=== PATIENT | male | born 1995 | race Caucasian/White ===

== ENCOUNTER 2019-05-05 21:35 | Emergency (ER) | payer OTHER ==
[2019-05-05 21:47] VITALS: BP 132/72; PULSE 83; RESP 18; TEMP 98.1
[2019-05-05] MEDS ORDERED: PENICILLIN V POTASSIUM 250 MG TAB PO STA (22:08)
[2019-05-05] MEDS ORDERED: PENICILLIN VK 500MG STARTER 4 TAB BTL PO STA (22:08)
[2019-05-05] MEDS ORDERED: KETOROLAC 60 MG/2 ML VIAL IM STA (22:08)
--- NOTE | 2019-05-05 22:18 | ED ---
General Adult HPI - General Chief complaint: Dental/Oral Stated complaint: Dental pain Time Seen by Provider: 05/05/19 21:47 Source: patient, RN notes reviewed, old records reviewed Mode of arrival: ambulatory Limitations: no limitations - History of Present Illness Initial comments: 24-year-old male patient presents ED for chief complaint dental pain. Reports has been ongoing for the last 2 days. Describes it in left lower molar region. As well as the left upper molar region. Has appointment for dentist next week. Denies any other complaints. Systemic: Pt denies fatigue, fever/chills, rash. Pt denies weakness, night sweats, weight loss. Neuro: Pt denies headache, visual disturbances, syncope or pre-syncope. HEENT: Pt denies ocular discharge or irritation, otalgia, rhinorrhea, pharyngitis or notable lymphadenopathy. Cardiopulmonary: Pt denies chest pain, SOB, heart palpitations, dyspnea on exertion. Abdominal/GI: Pt denies abdominal pain, n/v/d. : Pt denies dysuria, burning w/ urination, frequency/urgency. Denies new onset urinary or bowel incontinence. MSK: Pt denies myalgia, loss of strength or function in extremities. Neuro: Pt denies new onset weakness, paresthesias. - Related Data Previous Rx's Medication Instructions Recorded Penicillin V Potassium [Pen Vee K] 500 mg PO QID 7 Days #28 tablet 05/05/19 Allergies Allergy/AdvReac Type Severity Reaction Status Date / Time No Known Allergies Allergy Verified 05/05/19 21:46 Review of Systems ROS Statement: Those systems with pertinent positive or pertinent negative responses have been documented in the HPI. ROS Other: All systems not noted in ROS Statement are negative. Past Medical History Past Medical History: No Reported History History of Any Multi-Drug Resistant Organisms: None Reported Past Surgical History: Appendectomy Past Psychological History: No Psychological Hx Reported Smoking Status: Current every day smoker Past Alcohol Use History: None Reported Past Drug Use History: None Reported General Exam - General Exam Comments Initial Comments: Constitutional: NAD, AOX3, Pt has pleasant affect. HEENT: NC/AT, trachea midline, neck supple, no lymphadenopathy. Posterior pharynx non erythematous, without exudates. External ears appear normal, without discharge. Mucous membranes moist. Eyes PERRLA, EOM intact. There is no scleral icterus. No pallor noted. Full exam revealed poor dentition. There is noted left lower molar region. Small amount of erythema to gums in left lower molar region. No drainable abscess. Cardiopulmonary: RRR, no murmurs, rubs or gallops, no JVD noted. Lungs CTAB in anterior and posterior roman. No peripheral edema. Abdominal exam: Abdomen soft and non-distended. Abdomen non-tender to palpation in all 4 quadrants. Bowel sounds active in LLQ. No hepatosplenomegaly. No ecchymosis Neuro: CN II-XII grossly intact. No nuchal rigidity. No raccon eyes, no avilez sign, no hemotympanum. No cervical spinal tenderness. MSK: No posterior calf tenderness bilaterally, homans sign negative bilaterally. Posterior tibialis and radial pulse +2 bilaterally. Sensation intact in upper and lower extremities. Full active ROM in upper and lower extremities, 5/5 stregnth. Limitations: no limitations Course Vital Signs 05/05/19 21:44 Temperature 98.1 F Pulse Rate 83 Respiratory 18 Rate Blood Pressure 132/72 O2 Sat by Pulse 97 Oximetry Medical Decision Making - Medical Decision Making 24-year-old male patient presented to ED for chief complaint of dental pain. Reports has been ongoing for 2 days. Patient is a poor dentition. Patient was under stable, afebrile. His exam is likely dental caries, small amount of erythema gumline, no drainable abscess. Patient initiated on penicillin VK, will follow-up with dentist as previously scheduled. Return to ER if condition worsens. Case discussed with Dr. Romero. Disposition Clinical Impression: Pain, dental Disposition: HOME SELF-CARE Condition: Stable Instructions (If sedation given, give patient instructions): Toothache (ED) Additional Instructions: Taken antibiotics as directed. Follow-up with dentist as scheduled. Return to ER if condition worsens. Prescriptions: Penicillin V Potassium [Pen Vee K] 500 mg PO QID 7 Days #28 tablet Is patient prescribed a controlled substance at d/c from ED?: No Referrals: None,Stated [Primary Care Provider] - 1-2 days
== END 2019-05-05 22:23 | disposition home or self-care (01) ==
LOC: EC 21:35
DX: K08.89 Other specified disorders of teeth and supporting structures (principal); F17.200 Nicotine dependence, unspecified, uncomplicated
CPT/HCPCS: 99283; 96372; J1885

== ENCOUNTER 2020-06-19 18:23 | Emergency (ER) | payer OTHER ==
[2020-06-19 18:29] VITALS: BP 131/68; PULSE 87; RESP 20; TEMP 97.7
--- NOTE | 2020-06-19 19:18 | ED ---
Recheck HPI - General Chief Complaint: Recheck/Abnormal Lab/Rx Stated Complaint: Hemorrhoid Time Seen by Provider: 06/19/20 18:59 Source: patient Mode of arrival: ambulatory Limitations: no limitations - History of Present Illness Initial Comments: 25-year-old male patient presents to the emergency department today for evaluation of a bleeding hemorrhoid. Patient states his been having difficulty with this hemorrhoid over the last week. States that over the last 2 days he has noticed blood on the toilet paper with wiping. States his pain has improved to the area. Denies difficulty with bowel movement states he is taking a stool softener. Denies any fever or chills. States he has had problems with hemorrhoids in the past. He is using Preparation H and colace. Denies use of anticoagulant or antiplatelet medications. Denies history of bleeding disorder. Denies dizziness or weakness. - Related Data Previous Rx's Medication Instructions Recorded Penicillin V Potassium [Pen Vee K] 500 mg PO QID 7 Days #28 tablet 05/05/19 Hydrocortisone Cream 1 applic TOPICAL BID #15 gm 06/19/20 [Hydrocortisone 2.5% Cream] Allergies Allergy/AdvReac Type Severity Reaction Status Date / Time No Known Allergies Allergy Verified 05/05/19 21:46 Review of Systems ROS Statement: Those systems with pertinent positive or pertinent negative responses have been documented in the HPI. ROS Other: All systems not noted in ROS Statement are negative. Past Medical History Past Medical History: No Reported History History of Any Multi-Drug Resistant Organisms: None Reported Past Surgical History: Appendectomy Past Psychological History: No Psychological Hx Reported Smoking Status: Current every day smoker Past Alcohol Use History: None Reported Past Drug Use History: None Reported General Exam Limitations: no limitations General appearance: alert, in no apparent distress, other (This is a well- developed, well-nourished adult male patient in no acute distress. Vital signs upon presentation are temperature 97.7F, pulse 87, respirations 20, blood pressure 131/68, pulse ox 99% on room air.) Respiratory exam: Present: normal lung sounds bilaterally. Absent: respiratory distress, wheezes, rales, rhonchi, stridor Cardiovascular Exam: Present: regular rate, normal rhythm, normal heart sounds. Absent: systolic murmur, diastolic murmur, rubs, gallop, clicks GI/Abdominal exam: Present: soft, normal bowel sounds. Absent: distended, tenderness, guarding, rebound, rigid Rectal exam: Present: hemorrhoids (Hemorrhoid noted at the 3 o'clock position. This is soft, nontender, nonthrombosed. No active bleeding noted.) Neurological exam: Present: alert, oriented X3, CN II-XII intact Psychiatric exam: Present: normal affect, normal mood Skin exam: Present: warm, dry, intact, normal color. Absent: rash Course Vital Signs 06/19/20 18:26 Temperature 97.7 F Pulse Rate 87 Respiratory 20 Rate Blood Pressure 131/68 O2 Sat by Pulse 99 Oximetry Medical Decision Making - Medical Decision Making 25-year-old male patient presented to the emergency department today for evaluation of bleeding hemorrhoid. States he started having bleeding over the last couple of days. No significant discomfort. Physical examination did reveal a hemorrhoid about pea-sized at the 3 o'clock position of the anus. No current inflammation, is nontender. No active bleeding. We will switch him to hydrocortisone 2.5% cream to apply twice daily. He is educated regarding performing sitz baths twice daily. He is instructed to follow-up his primary care physician for recheck in 1-2 days. Return parameters were discussed in detail. He verbalizes understanding and agrees with this plan. Case discussed with my attending Dr. Dougherty. Disposition Clinical Impression: Hemorrhoid Disposition: HOME SELF-CARE Condition: Good Instructions (If sedation given, give patient instructions): Hemorrhoids (ED) Additional Instructions: Use new ointment with steroid present to help shrink the hemorrhoid. Do warm sitz bath a couple times a day. Follow-up through primary care physician for recheck in 1-2 days. Return to the emergency department for any new, worsening, or concerning symptoms Prescriptions: Hydrocortisone Cream [Hydrocortisone 2.5% Cream] 1 applic TOPICAL BID #15 gm Is patient prescribed a controlled substance at d/c from ED?: No Referrals: None,Stated [Primary Care Provider] - 1-2 days Time of Disposition: 19:18
== END 2020-06-19 19:45 | disposition home or self-care (01) ==
LOC: EC 18:23
DX: K64.9 Unspecified hemorrhoids (principal); F17.200 Nicotine dependence, unspecified, uncomplicated
CPT/HCPCS: 99284

== ENCOUNTER 2021-01-17 12:48 | Emergency (ER) | payer OTHER ==
[2021-01-17 13:13] VITALS: BP 110/61; TEMP 98.2
[2021-01-17] MEDS ORDERED: IPRATROPIUM-ALBUTEROL 3 ML NEB INHALATION STA (13:33)
--- NOTE | 2021-01-17 13:55 | XR ---
EXAMINATION TYPE: XR chest 2V DATE OF EXAM: 01/17/2021 COMPARISON: NONE HISTORY: sob TECHNIQUE: Frontal and lateral views of the chest are obtained. FINDINGS: There is no focal air space opacity, pleural effusion, or pneumothorax seen. The cardiac silhouette size is within normal limits. The osseous structures are intact. IMPRESSION: No acute cardiopulmonary process.
[2021-01-17 13:58] VITALS: RESP 18
[2021-01-17 14:08] VITALS: PULSE 80
--- NOTE | 2021-01-17 14:10 | ED ---
General Adult HPI - General Chief complaint: Upper Respiratory Infection Stated complaint: SOB Time Seen by Provider: 01/17/21 13:14 Source: patient, RN notes reviewed Mode of arrival: ambulatory Limitations: no limitations - History of Present Illness Initial comments: 25-year-old male presents emergency Department chief shortness of breath. Patient states she's been having issues with his asthma last few days. Patient has meant that he works for [employer] has been outside in the weather. Patient states he uses his inhaler which helps his symptoms and eyes fevers chills he is unsure of his been exposed to COVID-19 no abdominal complaints no chest pain currently. - Related Data Previous Rx's Medication Instructions Recorded Penicillin V Potassium [Pen Vee K] 500 mg PO QID 7 Days #28 tablet 05/05/19 Hydrocortisone Cream 1 applic TOPICAL BID #15 gm 06/19/20 [Hydrocortisone 2.5% Cream] Azithromycin [Zithromax Z-pack (6 0 mg PO DIRECTED #1 packet 01/17/21 tabs)] predniSONE 50 mg PO DAILY #5 tab 01/17/21 Allergies Allergy/AdvReac Type Severity Reaction Status Date / Time No Known Allergies Allergy Verified 01/17/21 13:13 Review of Systems ROS Statement: Those systems with pertinent positive or pertinent negative responses have been documented in the HPI. ROS Other: All systems not noted in ROS Statement are negative. Past Medical History Past Medical History: No Reported History History of Any Multi-Drug Resistant Organisms: None Reported Past Surgical History: Appendectomy Past Psychological History: No Psychological Hx Reported Smoking Status: Current every day smoker Past Alcohol Use History: None Reported Past Drug Use History: None Reported General Exam Limitations: no limitations General appearance: alert, in no apparent distress Head exam: Present: atraumatic, normocephalic, normal inspection Eye exam: Present: normal appearance, PERRL, EOMI. Absent: scleral icterus, conjunctival injection, periorbital swelling ENT exam: Present: normal exam, normal oropharynx, mucous membranes moist, TM's normal bilaterally Neck exam: Present: normal inspection. Absent: tenderness, meningismus, lymphadenopathy Respiratory exam: Present: wheezes. Absent: normal lung sounds bilaterally, respiratory distress, rales, rhonchi, stridor Cardiovascular Exam: Present: regular rate, normal rhythm, normal heart sounds. Absent: systolic murmur, diastolic murmur, rubs, gallop, clicks Course Vital Signs 01/17/21 01/17/21 01/17/21 13:10 13:53 14:08 Temperature 98.2 F Pulse Rate 65 63 80 Respiratory 16 18 18 Rate Blood Pressure 110/61 O2 Sat by Pulse 96 Oximetry EKG Findings - EKG Comments: EKG Findings:: EKG performed at 13:19 normal sinus rhythm, rate of 72 RI 178 QRS 108 QT/QTC 354/387 Medical Decision Making - Medical Decision Making X-rays unremarkable, COVID-19 is negative. Patient does have improvement after DuoNeb treatment be discharged in stable condition with mild asthmatic bronchitis. Return parameters were discussed. - Lab Data Lab Results 01/17/21 Range/Units 13:50 Coronavirus (PCR) Not Detected (Not Detectd) Disposition Clinical Impression: Asthmatic bronchitis Disposition: HOME SELF-CARE Condition: Stable Instructions (If sedation given, give patient instructions): Upper Respiratory Infection (ED) Additional Instructions: Please return to the Emergency Department if symptoms worsen or any other concerns. Prescriptions: predniSONE 50 mg PO DAILY #5 tab Azithromycin [Zithromax Z-pack (6 tabs)] 0 mg PO DIRECTED #1 packet Is patient prescribed a controlled substance at d/c from ED?: No Referrals: None,Stated [Primary Care Provider] - 1-2 days Time of Disposition: 14:43
[2021-01-17] MEDS ORDERED: predniSONE 50 MG TAB PO STA (14:45)
== END 2021-01-17 14:52 | disposition home or self-care (01) ==
LOC: EC 12:48
DX: J45.909 Unspecified asthma, uncomplicated (principal); F17.200 Nicotine dependence, unspecified, uncomplicated; Z20.822 Contact with and (suspected) exposure to COVID-19
CPT/HCPCS: 94640; 93005; 87635; 71046; 99285; J7512

== ENCOUNTER 2022-11-03 21:39 | Emergency (ER) | payer OTHER ==
[2022-11-03 21:58] VITALS: RESP 16
[2022-11-03] MEDS ORDERED: DIPH,PERTUS(ACELL)TETVAC-LF 0.5 ML VIAL IM ONE (22:48)
--- NOTE | 2022-11-03 23:06 | ED ---
General Adult HPI - General Chief complaint: Extremity Injury, Upper Stated complaint: Fish hook in Right Middle Finger Time Seen by Provider: 11/03/22 22:32 Source: patient, RN notes reviewed Mode of arrival: ambulatory Limitations: no limitations - History of Present Illness Initial comments: 27-year-old male presents to the emergency department chief complaint of fishhook in his right middle finger. Patient states that he was attempting to help someone with the fishhook when it got stuck in his finger. This happened just prior to arrival. Patient is up-to-date on his tetanus shot. Patient takes no daily medications. No medication ALLERGIES - Related Data Previous Rx's Medication Instructions Recorded Penicillin V Potassium [Pen Vee K] 500 mg PO QID 7 Days #28 tablet 05/05/19 Hydrocortisone Cream 1 applic TOPICAL BID #15 gm 06/19/20 [Hydrocortisone 2.5% Cream] Azithromycin [Zithromax Z-pack (6 0 mg PO DIRECTED #1 packet 01/17/21 tabs)] predniSONE 50 mg PO DAILY #5 tab 01/17/21 Allergies Allergy/AdvReac Type Severity Reaction Status Date / Time No Known Allergies Allergy Verified 11/03/22 21:52 Review of Systems ROS Statement: Those systems with pertinent positive or pertinent negative responses have been documented in the HPI. ROS Other: All systems not noted in ROS Statement are negative. Past Medical History Past Medical History: No Reported History History of Any Multi-Drug Resistant Organisms: None Reported Past Surgical History: Appendectomy Past Psychological History: No Psychological Hx Reported Smoking Status: Current every day smoker Past Alcohol Use History: None Reported Past Drug Use History: None Reported General Exam Limitations: no limitations General appearance: alert, in no apparent distress Head exam: Present: atraumatic, normocephalic, normal inspection Eye exam: Present: normal appearance ENT exam: Present: normal exam, mucous membranes moist Neck exam: Present: normal inspection. Absent: tenderness, meningismus, lymphadenopathy Respiratory exam: Present: normal lung sounds bilaterally. Absent: respiratory distress, wheezes, rales, rhonchi, stridor Cardiovascular Exam: Present: regular rate, normal rhythm, normal heart sounds. Absent: systolic murmur, diastolic murmur, rubs, gallop, clicks Extremities exam: Present: full ROM, normal capillary refill, other ([place] to right middle finger, removed). Absent: pedal edema, joint swelling, calf tenderness Back exam: Present: normal inspection Neurological exam: Present: alert, oriented X3 Psychiatric exam: Present: normal affect, normal mood Skin exam: Present: warm, dry, normal color, other (fishhook to finger, removed). Absent: rash Course Vital Signs 11/03/22 11/03/22 11/03/22 21:53 22:27 23:37 Temperature 97.6 F 98.2 F Pulse Rate 104 H 68 78 Respiratory 16 16 16 Rate Blood Pressure 125/79 120/70 123/81 O2 Sat by Pulse 97 98 98 Oximetry Procedures - Forgein Body Removal Soft Tissue Consent Obtained: verbal consent Site: hand Anesthetic Used: lidocaine 1% Foreign Body Suspected: Fish Hook Foreign Body Removed: yes Patient Tolerated Procedure: well, no complications Medical Decision Making - Medical Decision Making Was pt. sent in by a medical professional or institution (NIGHAT Townsend, RN RESIDENTIAL, urgent care, hospital, or half-way...) When possible be specific @ -No Did you speak to anyone other than the patient for history (EMS, parent, family, police, friend...)? What history was obtained from this source @ -No Did you review nursing and triage notes (agree or disagree)? Why? @ -I reviewed and agree with nursing and triage notes Were old charts reviewed (outside hosp., previous admission, EMS record, old EKG, old radiological studies, urgent care reports/EKG's, half-way records)? Report findings @ -No old charts were reviewed Differential Diagnosis (chest pain, altered mental status, abdominal pain women, abdominal pain men, vaginal bleeding, weakness, fever, dyspnea, syncope, headache, dizziness, GI bleed, back pain, seizure, CVA, palpatations, mental health, musculoskeletal)? @ -Soft tissue foreign body, this list is not all-inclusive EKG interpreted by me (3pts min.). @ -None X-rays interpreted by me (1pt min.). @ -None done CT interpreted by me (1pt min.). @ -None done U/S interpreted by me (1pt. min.). @ -None done What testing was considered but not performed or refused? (CT, X-rays, U/S, labs)? Why? @ -None What meds were considered but not given or refused? Why? @ -None Did you discuss the management of the patient with other professionals (professionals i.e. Dr., PA, RN RESIDENTIAL, lab, RT, psych nurse, social science professor, tandem mill roller, teacher, signals officer, cyanide case hardener)? Give summary @ -No Was smoking cessation discussed for >3mins.? @ -No Was critical care preformed (if so, how long)? @ -No Were there social determinants of health that impacted care today? How? (Homelessness, low income, unemployed, alcoholism, drug addiction, transportation, low edu. Level, literacy, decrease access to med. care, halfway, rehab)? @ -No Was there de-escalation of care discussed even if they declined (Discuss DNR or withdrawal of care, Hospice)? DNR status @ -No What co-morbidities impacted this encounter? (DM, HTN, Smoking, COPD, CAD, Cancer, CVA, ARF, Chemo, Hep., AIDS, mental health diagnosis, sleep apnea, morbid obesity)? @ -None Was patient admitted / discharged? Hospital course, mention meds given and route, prescriptions, significant lab abnormalities, going to OR and other pertinent info. @ -discharged. Patient presented to emergency department chief complaint of fishhook to his right middle finger. Patient states that he is none. His tetanus shot. This was updated today. Digital block was performed. [place] was removed by poking the end to the finger and cutting off the serafin. It is stable at time of discharge. Case discussed my attending, Dr. Shannon Undiagnosed new problem with uncertain prognosis? @ -No Drug Therapy requiring intensive monitoring for toxicity (Heparin, Nitro, Insulin, Cardizem)? @ -No Were any procedures done? @ -No Diagnosis/symptom? @ -[place] in finger Acute, or Chronic, or Acute on Chronic? @ -Acute Uncomplicated (without systemic symptoms) or Complicated (systemic symptoms)? @ -Uncomplicated Side effects of treatment? @ -No Exacerbation, Progression, or Severe Exacerbation? @ -No Poses a threat to life or bodily function? How? (Chest pain, [place], CA, pneumonia, PE, COPD, DKA, ARF, appy, cholecystitis, CVA, Diverticulitis, Homicidal, Suicidal, threat to staff... and all critical care pts) @ -No Disposition Clinical Impression: Fish hook in finger Disposition: HOME SELF-CARE Condition: Stable Instructions (If sedation given, give patient instructions): Soft Tissue Foreign Body (ED) Additional Instructions: Please keep wound clean and dry. Return to the emergency department for new or worsening symptoms. Is patient prescribed a controlled substance at d/c from ED?: No Referrals: None,Stated [Primary Care Provider] - 1-2 days Time of Disposition: 23:06
[2022-11-03 23:37] VITALS: BP 123/81; PULSE 78; TEMP 98.2
== END 2022-11-03 23:37 | disposition home or self-care (01) ==
LOC: EC 21:39
DX: S61.242A Puncture wound with foreign body of right middle finger without damage to nail, initial encounter (principal); F17.200 Nicotine dependence, unspecified, uncomplicated; Z23 Encounter for immunization; W45.8XXA Other foreign body or object entering through skin, initial encounter
CPT/HCPCS: 64450; 90471; 90715; 99283

== ENCOUNTER 2023-12-29 10:07 | Emergency (ER) | payer OTHER ==
[2023-12-29 10:11] VITALS: RESP 18; TEMP 98
[2023-12-29] MEDS: IBUPROFEN 600 MG TAB PO STA (11:00)
--- NOTE | 2023-12-29 11:46 | XR ---
EXAMINATION TYPE: XR chest 2V DATE OF EXAM: 12/29/2023 COMPARISON: 01/17/2021 HISTORY: 28-year-old male with fever TECHNIQUE: PA and lateral views FINDINGS: Heart normal size. Aorta and pulmonary vasculature within normal limits. Slightly low lung volumes. N o consolidation or pleural effusion. IMPRESSION: Slightly low lung volumes. Otherwise, no acute process seen.
[2023-12-29] MEDS: AMOXICILLIN 500 MG CAP PO STA (12:28)
--- NOTE | 2023-12-29 12:47 | ED ---
ENT HPI - General Chief complaint: ENT Stated complaint: sore throat,fever Time Seen by Provider: 12/29/23 12:46 Source: patient, RN notes reviewed Mode of arrival: ambulatory Limitations: no limitations - History of Present Illness Initial comments: Patient is a 28-year-old male presented to the ER with a chief complaint of sore throat. Patient states he started to experience sore throat and fevers yesterday. Fevers as high as 101. Patient has taken [id number] Tylenol with relief of fever. He does report a mild cough and congestion. Denies any shortness of breath or wheezing. Denies any nausea, vomiting, chest pain, abdominal pain, peripheral edema or urinary complaints. - Related Data Previous Rx's Medication Instructions Recorded Penicillin V Potassium [Pen Vee K] 500 mg PO QID 7 Days #28 tablet 05/05/19 Hydrocortisone Cream 1 applic TOPICAL BID #15 gm 06/19/20 [Hydrocortisone 2.5% Cream] Azithromycin [Zithromax Z-pack (6 0 mg PO DIRECTED #1 packet 01/17/21 tabs)] predniSONE 50 mg PO DAILY #5 tab 01/17/21 Amoxicillin 500 mg PO BID #20 capsule 12/29/23 Allergies Allergy/AdvReac Type Severity Reaction Status Date / Time No Known Allergies Allergy Verified 12/29/23 10:11 Review of Systems ROS Statement: Those systems with pertinent positive or pertinent negative responses have been documented in the HPI. ROS Other: All systems not noted in ROS Statement are negative. Past Medical History Past Medical History: No Reported History History of Any Multi-Drug Resistant Organisms: None Reported Past Surgical History: Appendectomy Past Psychological History: No Psychological Hx Reported Smoking Status: Current every day smoker Past Alcohol Use History: None Reported Past Drug Use History: None Reported General Exam Limitations: no limitations General appearance: alert, in no apparent distress ENT exam: Present: normal exam, mucous membranes moist, TM's normal bilaterally, other (Erythematous edematous bilateral tonsils with white exudates present.) Neck exam: Present: normal inspection. Absent: tenderness, meningismus, lymphadenopathy Respiratory exam: Present: normal lung sounds bilaterally. Absent: respiratory distress, wheezes, rales, rhonchi, stridor Cardiovascular Exam: Present: regular rate, normal rhythm, normal heart sounds. Absent: systolic murmur, diastolic murmur, rubs, gallop, clicks Neurological exam: Present: alert, oriented X3, CN II-XII intact Skin exam: Present: warm, dry, intact, normal color. Absent: rash Course Vital Signs 12/29/23 12/29/23 10:09 13:01 Temperature 98 F 98 F Pulse Rate 95 91 Respiratory 18 18 Rate Blood Pressure 123/78 120/77 O2 Sat by Pulse 98 98 Oximetry Medical Decision Making - Medical Decision Making Was pt. sent in by a medical professional or institution (, PA, MANAGER OB, urgent care, hospital, or detention...) When possible be specific @ -No Did you speak to anyone other than the patient for history (EMS, parent, family, police, friend...)? What history was obtained from this source @ -No Did you review nursing and triage notes (agree or disagree)? Why? @ -I reviewed and agree with nursing and triage notes Were old charts reviewed (outside hosp., previous admission, EMS record, old EKG, old radiological studies, urgent care reports/EKG's, detention records)? Report findings @ -No old charts were reviewed Differential Diagnosis (chest pain, altered mental status, abdominal pain women, abdominal pain men, vaginal bleeding, weakness, fever, dyspnea, syncope, headache, dizziness, GI bleed, back pain, seizure, CVA, palpatations, mental health, musculoskeletal)? @ -Differential Fever:Pneumonia, viral URI, endocarditis, myocarditis, p ericarditis, otitis, sinusitis, peritonsillar Abscess, retropharyngeal Abscess, epiglottitis, peritonitis, appendicitis, Gita cystitis, diverticulitis, hepatitis, colitis, UTI, PID, TOA, pyelonephritis, prostatitis, epididymitis, meningitis, encephalitis, pulmonary embolism, CVA, thyroid storm, pancreatitis, adrenal crisis, cavernous sinus thrombosis, this is not meant to be an all- inclusive list. EKG interpreted by me (3pts min.). @ -None X-rays interpreted by me (1pt min.). @ -Chest x-ray interpreted by me negative for acute cardiopulmonary process. CT interpreted by me (1pt min.). @ -None done U/S interpreted by me (1pt. min.). @ -None done What testing was considered but not performed or refused? (CT, X-rays, U/S, labs)? Why? @ -None What meds were considered but not given or refused? Why? @ -Patient refused steroids for symptom control. Did you discuss the management of the patient with other professionals (professionals i.e. , PA, MANAGER OB, lab, RT, psych nurse, social sciences professor, patrol agent, teacher, retail loss prevention officer, child support case officer)? Give summary @ -No Was smoking cessation discussed for >3mins.? @ -I discussed smoking cessation for greater than 3 minutes. The risk of smoking were discussed with the patient including but not limited to risks of cancer, stroke, coronary artery disease and COPD. Also discussed with patient were multiple methods of quitting smoking. Lastly we discussed the financial cost of smoking. Was critical care preformed (if so, how long)? @ -No Were there social determinants of health that impacted care today? How? (Homelessness, low income, unemployed, alcoholism, drug addiction, transportation, low edu. Level, literacy, decrease access to med. care, intermediate, rehab)? @ -No Was there de-escalation of care discussed even if they declined (Discuss DNR or withdrawal of care, Hospice)? DNR status @ -No What co-morbidities impacted this encounter? (DM, HTN, Smoking, COPD, CAD, Cancer, CVA, ARF, Chemo, Hep., AIDS, mental health diagnosis, sleep apnea, morbid obesity)? @ -None Was patient admitted / discharged? Hospital course, mention meds given and route, prescriptions, significant lab abnormalities, going to OR and other pertinent info. @ -Discharge. 28-year-old male presented to ER with a chief complaint of sore throat and fever. History and physical exam completed. Vitals within normal limits. Patient in no signs of acute distress and nontoxic-appearing. Exam remarkable for erythematous edematous bilateral tonsils with white exudates present. Lung sounds clear to station bilaterally. Viral swabs negative. Strep positive. Chest x-ray interpreted by me negative for acute cardiopulmonary process. Patient received p.o. ibuprofen for symptom control in the ER. Amoxicillin prescribed, first dose in the ER. Upon reevaluation, patient resting comfortably in exam room in no signs of acute distress. Results discussed with patient, all questions answered. Strict return parameters discussed. Patient discharged in stable condition with follow-up to PCP. Patient verbally expressed understanding agree with care plan. Case discussed with ED attending, Dr. Asif. Undiagnosed new problem with uncertain prognosis? @ -No Drug Therapy requiring intensive monitoring for toxicity (Heparin, Nitro, Insulin, Cardizem)? @ -No Were any procedures done? @ -No Diagnosis/symptom? @ -Strep pharyngitis Acute, or Chronic, or Acute on Chronic? @ -Acute Uncomplicated (without systemic symptoms) or Complicated (systemic symptoms)? @ -Uncomplicated Side effects of treatment? @ -No Exacerbation, Progression, or Severe Exacerbation? @ -No Poses a threat to life or bodily function? How? (Chest pain, USA, PR, pneumonia, PE, COPD, DKA, ARF, appy, cholecystitis, CVA, Diverticulitis, Homicidal, Suici queta, threat to staff... and all critical care pts) @ -No - Lab Data Lab Results 12/29/23 12/29/23 Range/Units 11:05 11:05 Influenza Type A (PCR) Not Detected (Not Detectd) Influenza Type B (PCR) Not Detected (Not Detectd) RSV (PCR) Not Detected (Not Detectd) SARS-CoV-2 (PCR) Not Detected (Not Detectd) Group A Strep (PCR) DETECTED A (Not Detectd) - Radiology Data Radiology results: report reviewed, image reviewed Disposition Clinical Impression: Strep pharyngitis Disposition: HOME SELF-CARE Condition: Stable Instructions (If sedation given, give patient instructions): Strep Throat (DC), Fever in Adults (ED) Additional Instructions: Will focus on amoxicillin. Follow-up with PCP. I recommend [id number] Tylenol Motrin every 4-6 hours for fever control. Return to the ER for new or worsening concerns. Prescriptions: Amoxicillin 500 mg PO BID #20 capsule Is patient prescribed a controlled substance at d/c from ED?: No Referrals: None,Stated [Primary Care Provider] - 1-2 days Forms: Area PCPs Time of Disposition: 12:47
[2023-12-29 13:04] VITALS: BP 120/77; PULSE 91
== END 2023-12-29 13:01 | disposition home or self-care (01) ==
LOC: EC 10:07
DX: J02.0 Streptococcal pharyngitis (principal); B95.0 Streptococcus, group A, as the cause of diseases classified elsewhere; F17.200 Nicotine dependence, unspecified, uncomplicated
CPT/HCPCS: 71046; 87636; 87651; 99283